=== PATIENT | male | born 1995 | race Caucasian/White ===

== ENCOUNTER 2018-06-14 12:59 | Day surgery (SDC) | payer OTHER ==
[2018-06-13 17:04] VITALS: BMI 25.7
[2018-06-14] MEDS ORDERED: BUPIVACAINE HCL/PF 0.5% (5MG/ML) 10 ML VIAL ONE (15:17)
--- NOTE | 2018-06-14 15:23 | HP ---
[facility] - Chief Complaint Chief Complaint: Right inguinal hernia with pain History Source: Patient Limitations to Obtaining History: No Limitations - Past Medical History Allergies/Adverse Reactions: Allergies Allergy/AdvReac Type Severity Reaction Status Date / Time No Known Allergies Allergy Verified 06/14/18 13:28 - Current Medications Current Medications: Home Medications Medication Instructions Recorded NK [No Known Home Medication] 06/13/18 [facility] Physical Exam - Physical Examination Vital Signs: Vital Signs Period Temp Pulse Resp BP Sys/Hamlin Pulse Ox Last 24 Hr 98.6 F 63 18 122/71 General Appearance: Well Nourished Lung: Clear to auscultation Heart: Regular rate & rhythm Abdomen: Soft, No tenderness Neurological: Alert, Oriented Satellite Impression/Plan - Impression/Plan Impression: Right inguinal hernia with pain Operative Procedure: Robotic possible open right inguinal hernia repair with mesh Date to be Performed: 06/14/18
[2018-06-14] MEDS ORDERED: ROCURONIUM BROMIDE 50 MG/5 ML VIAL ONE (15:46)
[2018-06-14] MEDS ORDERED: MIDAZOLAM HCL 2 MG/2 ML SINGLE DOSE VIAL ONE (15:46)
[2018-06-14] MEDS ORDERED: PROPOFOL 20 ML ONE (15:46)
[2018-06-14] MEDS ORDERED: LIDOCAINE HCL/PF 2% SDV 5ML VIAL ONE (15:59)
[2018-06-14] MEDS ORDERED: DESFLURANE GAS 240 ML BOTTLE IH ONE (16:03)
[2018-06-14] MEDS ORDERED: SODIUM CHLORIDE 0.9% P/F 10 ML VIAL IJ ONE (16:07)
[2018-06-14] MEDS ORDERED: ceFAZolin SODIUM 1 GM VIAL ONE (16:07)
[2018-06-14] MEDS ORDERED: ceFAZolin SODIUM 1 GM VIAL IVPB ONE (16:09)
[2018-06-14] MEDS ORDERED: DEXAMETHASONE SOD PHOSPHATE 4 MG/1 ML VIAL ONE (16:12)
[2018-06-14] MEDS ORDERED: GLYCOPYRROLATE 0.2 MG/1 ML VIAL ONE (17:27)
[2018-06-14] MEDS ORDERED: NEOSTIGMINE METHYLSULFATE 0.5 MG/ML - 10 ML MDV ONE (17:27)
[2018-06-14] MEDS ORDERED: KETOROLAC TROMETHAMINE 30 MG/1 ML VIAL ONE (17:28)
--- NOTE | 2018-06-14 17:46 | OP ---
Operative Note - Note: Operative Date: 06/14/18 Pre-Operative Diagnosis: Right inguinal hernia with pain Operation: Robotic right inguinal hernia repair with mesh. Laparoscopic umbilical hernia repair Post-Operative Diagnosis: Other (Right inguinal hernia with pain, umbilical hernia) Surgeon: Pete Mina Medical Research Assistant: Debbie Boswell Anesthesia: General Specimens Removed: None Estimated Blood Loss (mls): 5 Drains & Tubes with Location: Symbotex 15cm mesh Operative Report Dictated: Yes
[2018-06-14] MEDS ORDERED: ONDANSETRON 4 MG/2 ML VIAL IVPUSH PRN (17:48)
[2018-06-14] MEDS ORDERED: PROMETHAZINE HCL 25 MG/1 ML VIAL IVPUSH PRN (17:48)
[2018-06-14] MEDS ORDERED: LACTATED RINGERS SOLUTION 1,000 ML IV SCH (18:00)
[2018-06-14 18:28] VITALS: TEMP 98
[2018-06-14] MEDS ORDERED: oxyCODONE HCL 5 MG TABLET ONE (20:55)
[2018-06-14 21:25] VITALS: BP 123/75; PULSE 66
[2018-06-14] MEDS ORDERED: oxyCODONE HCL 5 MG TABLET PO PRN (21:27)
--- NOTE | 2018-06-18 08:14 | SURG ---
Surgery Evidence Specialist Note Evidence Specialist: Debbie Boswell PA-C Date of Service: 06/14/18 Diagnosis: Right inguinal hernia with pain Procedure: Robotic right inguinal hernia repair with mesh. Laparoscopic umbilical hernia repair I was present for the entirety of the operative procedure. For further detail, please refer to operative report. Visit type - Case Type Case Type: Scheduled - Emergency Emergency Visit: No - New patient This patient is new to me today: Yes Date on this admission: 06/14/18
--- NOTE | 2018-06-18 11:49 | SPEC ---
DATE OF OPERATION: 06/14/2018 SURGEON: Suresh Mina MD END USER CONSULTANT: MAUREEN Riggs PREOPERATIVE DIAGNOSIS: Right inguinal hernia with pain. POSTOPERATIVE DIAGNOSIS: Right inguinal hernia as well as umbilical hernia, with pain. PROCEDURE: Robotic right inguinal hernia repair with mesh, as well as laparoscopic umbilical hernia repair. MESH: Symbotex 15 cm mesh. SPECIMEN: None. ESTIMATED BLOOD LOSS: 5 mL. DRAINS: None. REASON FOR PROCEDURE: This is a 23-year-old gentleman who presented to the office for right inguinal pain. He was diagnosed with an inguinal hernia. He was seen in the emergency room prior to his office visit. CAT scan findings showed the same. Because of this, he was consented for robotic, possible open, right inguinal hernia repair after describing different options. The risks and benefits of the procedure were explained. Addendum: Please note, in addition, the patient was noted to have an umbilical hernia as well. RISKS AND BENEFITS: The risks and benefits of Robotic, possible open right inguinal hernia repair, possible bilateral inguinal hernia repair, with mesh were explained. These included bleeding, infection, recurrence of hernia, [place], DVT, PE, new hernia, mesh infection, injury to surrounding structures including the colon, bowel, bladder, ureter, spermatic cord, spermatic vessels, vas deferens, vessel injury, nerve injury, testicular injury including atrophy and possible loss of the testicle, and as some of the possible complications. The patient understood and signed informed consent. DESCRIPTION OF PROCEDURE: The patient was placed supine on the operating room table. Patient underwent general endotracheal intubation. A Lam catheter was inserted by the nursing staff. The arms were tucked at the side, and he was placed on a beanbag device. The abdomen was prepped and draped in the usual sterile fashion. A time-out was performed. A small umbilical hernia was noted. This was used to gain entrance initially into the abdominal cavity. A periumbilical incision was made, and entrance into the abdominal cavity was obtained using an 8-mm robotic optical trocar under direct visualization with a laparoscope. Pneumoperitoneum was established. Subsequently, two additional 8-mm trocars were placed, one approximately 6-7 cm to the left of the umbilicus and one 6-7 cm to the right of the umbilicus. The patient was placed in steep Trendelenburg, [id number] position. The robot was brought over the field and docked. Dissection was performed at the console. The peritoneum was opened using robotic EndoShears. The preperitoneal space over the right inguinal region was dissected. The epigastric vessels were identified. These were dissected towards the anterior abdominal wall. Dissection in the preperitoneal space was continued from the medial umbilical ligament towards the anterior-superior iliac spine. Medially, dissection was performed until Mamadou's ligament and the pubis were identified. Lateral to this, the spermatic cord structures including the vas deferens were identified. The contents of the hernia sac were identified and dissected down to the retroperitoneum. At this point, hemostasis was identified. Again, all of the hernia contents were noted to be completely dissected and noted to have no retraction back to its original position. A Symbotex mesh was then chosen, irrigated, and inserted into the abdominal cavity to cover the entire myopectineal orifice. This mesh was secured medially at the pubis and superolaterally to the abdominal wall with sutures. The mesh was noted to be in good position. The hernia was again noted to be fully reduced and without any tension. The umbilical hernia was closed using a 0 Vicryl suture with a Jacobo-Leida device, closing the umbilical hernia laparoscopically. At this point, the peritoneal flap was closed using a 2-0 V-Loc suture. Again, hemostasis was identified. All needles were removed from the field, and the count was confirmed to be correct. The robotic instruments were removed. The robot was undocked and removed from the operative field. The patient was placed supine. Pneumoperitoneum was desufflated. All trocars were removed. All incision sites were irrigated. Marcaine was injected into all incision sites. Hemostasis was noted at all incision sites. All skin incisions were closed using 4-0 Biosyn. Sterile dressings were applied. The Lam catheter was removed. The patient tolerated the procedure well and was transferred to the recovery room in stable condition. SURESH MINA M.D. [id number]
== END 2018-06-14 21:25 | disposition home or self-care (01) ==
LOC: JASU-SURG 12:59
PROVIDERS: ATTEND Surgery
PROC: 8E0W4CZ Robotic Assisted Procedure of Trunk Region, Percutaneous Endoscopic Approach (ICD-10-PCS; 2018-06-14)
PROC: 0WUF4JZ Supplement Abdominal Wall with Synthetic Substitute, Percutaneous Endoscopic Approach (ICD-10-PCS; 2018-06-14)
PROC: 0YU54JZ Supplement Right Inguinal Region with Synthetic Substitute, Percutaneous Endoscopic Approach (ICD-10-PCS; principal; 2018-06-14 15:00)
DX: K40.90 Unilateral inguinal hernia, without obstruction or gangrene, not specified as recurrent (principal); K42.9 Umbilical hernia without obstruction or gangrene
CPT/HCPCS: 49650; S2900; 86900; 94760